=== PATIENT | male | born 1960 | race Caucasian/White ===

== ENCOUNTER 2023-02-15 22:55 | Emergency (ER) | payer MEDICAID ==
[2023-02-15 23:04] VITALS: BP 170/81; PULSE 71
== END 2023-02-15 23:34 ==
LOC: JD.ED 22:55
DX: T23.232A Burn of second degree of multiple left fingers (nail), not including thumb, initial encounter (principal); Z72.0 Tobacco use; X19.XXXA Contact with other heat and hot substances, initial encounter
CPT/HCPCS: 99283